=== PATIENT | male | born 1980 | race African-American/Black ===

== ENCOUNTER 2016-07-22 23:15 | Emergency (ER) | payer BC ==
[2016-07-22] MEDS ORDERED: PAXIL PO (23:35)
== END 2016-07-23 00:47 | disposition home or self-care (01) ==
LOC: SED 23:15
DX: F41.1 Generalized anxiety disorder (principal); Z91.14 Patient's other noncompliance with medication regimen; Z88.8 Allergy status to other drugs, medicaments and biological substances
CPT/HCPCS: 99283